=== PATIENT | female | born 1970 | race African-American/Black ===

== ENCOUNTER 2018-10-21 08:54 | Emergency (ER) | payer MEDICAID ==
[~2018-10-21] VITALS: Ht 167.6 cm; Wt 55.0 kg
[2018-10-21 08:58] VITALS: BP 164/90
== END 2018-10-21 14:49 | disposition left against medical advice (07) ==
LOC: ER 08:54
DX: Z53.21 Procedure and treatment not carried out due to patient leaving prior to being seen by health care provider (principal)